=== PATIENT | female | born 1945 ===

== ENCOUNTER 2022-07-19 14:15 | Outpatient (RCR) | payer MEDICARE, SELFPAY | END 2022-07-19 16:15 | LOC: CAR 14:15 | PROVIDERS: Referring Provider Internal Medicine; Visit Provider Internal Medicine | DX: I21.4 Non-ST elevation (NSTEMI) myocardial infarction (principal) | CPT/HCPCS: 93798 ==

== ENCOUNTER → 2022-08-11 12:40 | Outpatient (CLI) | payer MEDICARE, SELFPAY ==
--- NOTE | 2022-08-11 12:44 | DI.RAD.S_ITS ---
PROCEDURE: FL BARIUM SWALLOW W SPEECH INDICATIONS: CHOCKING ON WATER, FOOD AND PILLS COMPARISON: None. TECHNIQUE: Examination was conducted in conjunction with speech pathology per standard protocol. In the lateral projection, filming was performed of the patient swallowing. AP projection filming may also be performed with patient swallowing. COMPARISON: FINDINGS: Function: The oral preparatory phase appears normal, with proper containment. The subsequent oral propulsive phase, pharyngeal phase, and esophageal phase of swallowing also appear normal with all proffered substances. No laryngotracheal penetration or aspiration. No pathologic vallecular pooling. Morphology: No cricopharyngeal bar is identified. No cervical esophageal webs. A moderate-sized Zenker diverticulum was visualized. No strictures. Patient was able to swallow and pass a standard calibrated barium tablet without difficulty. IMPRESSION: Moderate-sized Zenker diverticulum. Otherwise, unremarkable modified barium swallow study with speech pathology. Please see separate speech pathology report for further details. Dictated by: Suraj Pizarro M.D. on 08/11/2022 at 21:28 Approved by: Suraj Pizarro M.D. on 08/11/2022 at 21:31
--- NOTE | 2022-08-12 17:18 | ST.SWALLOW ---
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 pt indicated that she has been experiencing foods, pills and liquids becoming stuck in her throat/esophagus. She stated that when she lays down, she will have undigested foods/ liquids regurgitate into her mouth. She also reports a lot of mucous in her throat that she needs to spit out. Pt reported that she will wake up in the middle of the night with undigested foods in her pharynx. This is occurring daily/nightly. At times, pt reported, she will cough and choke on what she has swallowed/regurgitated. Subjective Observations Pt was seated in the fluoroscopy chair with directions and procedures provided. Pt indicated she understood and agreed to proceed. Patient Positioning Position View Lat-A/P Imaging Lateral View Textures Administered Trials Presented Thin Liquid via Spoon,Thin Liquid via Cup,Pudding Thick Liquid via Spoon,Regular Textures Oral Phase Source: MBSIMP (TM) (C) Bolus Specific Scoring Grid Lip Closure No Impairment (WNL) Tongue Control During Bolus Hold No Impairment (WNL) Bolus Prep/Mastication No Impairment (WNL) Bolus Transport/Lingual Motion No Impairment (WNL) A/P Lingual Propulsion Delay No Oral Residue No Impairment (WNL) Residue Clearing No Impairment (WNL) Nasal Regurgitation No Additional Oral Phase Observations OME and diadochokinesis was observed to be WNL. Oral phase of swallowing wa WNL with good rotary chew, bolus control and AP transport. No oral stasis observed. Pharyngeal Phase Source: MBSIMP (TM) (C) Bolus Specific Scoring Grid Delayed Initiation of Pharyngeal Swallow No Soft Palate Elevation No Impairment (WNL) Tongue Base Strength/Range of Motion Minimal Impairment Residue Along the Tongue Base No Laryngeal Elevation Minimal Impairment Anterior Hyoid Movement Minimal Impairment Epiglottic Range of Motion WFL Vallecular Residue Yes: Trace to minimal Clearance of Vallecular Residue Minimal Impairment Laryngeal Vestibular Closure WFL Pharyngeal Stripping Wave Minimal Impairment Posterior Pharyngeal Wall Residue Yes: Trace to minimal Clearance of Posterior Pharyngeal Wall WFL Residue Upper Esophageal Sphincter Opening WFL Residue in the Pyriform Sinuses Yes Clearance of Residue in the Pyriform Minimal Impairment Sinuses Esophageal Clearance Upright Position Moderate Impairment Pharyngoesophageal Backflow Observed Yes: l Additional Pharyngeal Phase Observations Pt's pharyngeal phase of swallowing demonstrated was overall WFL for the pt's age. Good closure of the laryngeal vestibule, adequate hyolaryngeal elevation and linguapharyngeal clearance to the esophagus. No laryngeal penetration nor aspiration observed. Pharyngeal residue was noted following large bolus trials, which were cleared with subsequent swallows. pharyngoesophageal backflow was observed following large bolus trials as well. A/P View Textures Administered Trials Presented Thin Liquid via Cup,Barium Tablet A/P View Observations Esophageal Function Stasis Esophageal Clearance Upright Position Moderate Impairment Additional Observations A Zenker's diverticulum was noted. See radiologist's report. The pharyngoesophageal backflow was from the filled diverticulum. This back flow presented an aspiration risk as the airway was open. referral to GI is recommended The barium tablet cleared the esophagus into the stomach without entering the diverticulum. When the pt was cued to dry swallow, small amount of the contrast was eliminated from the diverticulum, but it remained full. Esophageal Observations Esophageal Function The Zenker's diverticulum presented an aspiration risk to the pt as her airway remained open, especially at night while sleeping. A referral to GI is recommended. Clinical Impressions Dysphagia Type esophageal Findings No swallow therapy is recommended at this time. Patient Appropriate for Therapy No Recommendations Diet Comments No diet change Aspiration Precautions Recommended Precautions Upright at 90 Degrees,Frequent Rest Periods,Small Bites/Sips Additional Precautions Frequent small meals during the day. No PO for 2-3 hours before bed Treatment Plan Recommended Referrals GI Consult Compensatory Strategies Recommendations Sitting Upright (90 deg),Small Bites and Sips Additional Compensatory Strategies Dry swallows frequently Recommended folowing meals
== END ==
PROVIDERS: PCP Nurse Practitioner Family; Referring Provider Nurse Practitioner Family; Visit Provider Nurse Practitioner Family
DX: K22.5 Diverticulum of esophagus, acquired (principal); R47.02 Dysphasia
CPT/HCPCS: 74230; 92611